=== PATIENT | female | born 1955 | race Caucasian/White ===

== ENCOUNTER → 2016-08-18 | Outpatient (CLI) | payer OTHER ==
[~2016-08-18] MED LIST: AMOXICILLIN500 MG PO; ARIMIDEX1 MG PO; DAILY VITAMIN1 EAC2 PO; FOSAMAX35 MG PO; HYDROCODONE BIT1 T11 PO; MIRALAX17 GM PO; MULTIVITAMIN1 TA1 PO; NORCO 10-325 T1 EACH PO; OMEGA-31000 MG PO; OSCAL ULTRA 6001 TA1 PO; PERCOCET 325 MG1 TA5 PO; VITAMIN C500 M4 PO; VITAMIN D1000 IU PO; [UNRECOGNIZED DRUG - OTHER] PO
--- NOTE | ~2016-08-18 | ST ---
[place], [place] EXERCISE STRESS TEST REPORT NAME: FRANCOIS ZAMUDIO UNIT #: [id number] ROOM: DOCTOR: KRISTY MICHAELS [facility],JEANNE BIRTHDATE: [birth year] DOS: 08/18/2016 STRESS SESGARY Underwent stress test on stage 2 Kar protocol up to 89% predicted heart rate, 142 per minute. No ischemic changes on EKG. Isotope was injected. Exercised for a minute after injection of isotope. No complications noted. Myocardial perfusion scan to follow. Exercise tolerance is suboptimal. Heart rate response is good. Double product is good. JEANNE WAGNER MD CM:STRESS:EXERCISE STRESS TEST REPORT [id number] 40 SATINDER WAGNER MD [facility]
== END | disposition home or self-care (01) ==
LOC: CARD 02:11
DX: R07.9 Chest pain, unspecified (principal)

== ENCOUNTER 2022-04-08 23:42 | Emergency (ER) | payer OTHER ==
[~2022-04-08] VITALS: Wt 54.4 kg
== END 2022-04-09 01:50 | disposition home or self-care (01) ==
LOC: ED 23:42
DX: S93.401A Sprain of unspecified ligament of right ankle, initial encounter (principal); Z79.899 Other long term (current) drug therapy; Z98.51 Tubal ligation status; Z98.890 Other specified postprocedural states; Z90.49 Acquired absence of other specified parts of digestive tract; X50.1XXA Overexertion from prolonged static or awkward postures, initial encounter; Y93.89 Activity, other specified; Y92.89 Other specified places as the place of occurrence of the external cause; Y99.8 Other external cause status